=== PATIENT | male | born 1955 | race Caucasian/White ===

== ENCOUNTER 2021-06-29 17:17 | Emergency (ER) | payer MEDICARE, OTHER ==
[~2021-06-29] VITALS: Ht 177.8 cm; Wt 113.6 kg
[2021-06-29] MEDS ORDERED: LORazepam 2 MG/ML VIAL IVP ONE (18:00)
[2021-06-29 18:04] LABS: BASOPHILS % (AUTO) 0.7 % (0.0-2.0); EOSINOPHILS % (AUTO) 1.4 % (1.0-6.0); HEMATOCRIT 42.7 % (41-53); HEMOGLOBIN 14.1 g/dL (13.5-17.5); LYMPHOCYTES # (AUTO) 1.5 K/uL (1.0-4.8); LYMPHOCYTES % (AUTO) 21.5 % (22.0-44.0); MEAN CORPUSCULAR HEMOGLOBIN 28.9 pg (26.0-34.0); MEAN CORPUSCULAR HGB CONC 33.2 G/dL (31.0-37.0); MEAN CORPUSCULAR VOLUME 87 fL (80-100); MONOCYTES # (AUTO) 0.6 K/uL (0.1-1.0); MONOCYTES % (AUTO) 8.6 % (2.0-9.0); NEUTROPHILS # (AUTO) 4.8 K/uL (1.8-7.7); NEUTROPHILS % (AUTO) 67.8 % (40.0-70.0); PLATELET COUNT (AUTO) 116 K/uL (150-450); RED CELL DISTRIBUTION WIDTH 15.4 % (11.5-14.5)
[2021-06-29 18:15] LABS: CALCIUM, TOTAL 8.7 mg/dL (8.8-10.5); CREATININE 1.4 mg/dL (0.60-1.30); POTASSIUM 3.7 mmol/L (3.5-5.1)
[2021-06-29 18:21] LABS: ALBUMIN 3.3 g/dL (3.4-5.0); BILIRUBIN,TOTAL 0.8 mg/dL (0.1-1.0); TOTAL PROTEIN, SERUM 7.3 g/dL (6.4-8.2)
[2021-06-29 18:27] LABS: D-DIMER 0.27 mg/L FEU (0.00-0.50); PROTHROMBIN TIME 10.2 SEC (9.4-11.6)
[2021-06-29 18:37] LABS: COVID AG,FIA SOURCE NASAL SWAB
[2021-06-29 19:56] VITALS: BP 160/106
== END 2021-06-29 22:54 | disposition home or self-care (01) ==
LOC: EMS 17:26
DX: F10.239 Alcohol dependence with withdrawal, unspecified (principal); R06.02 Shortness of breath; I10 Essential (primary) hypertension; Z20.822 Contact with and (suspected) exposure to COVID-19; Y90.0 Blood alcohol level of less than 20 mg/100 ml
CPT/HCPCS: 36415; 71045; 80053; 83880; 84484; 85025; 85379; 85610; 85730; 87426; 93005; 96374; 99285; G0480; J2060

== ENCOUNTER 2023-05-18 06:57 | Emergency (ER) | payer MEDICARE, OTHER ==
[~2023-05-18] VITALS: Ht 177.8 cm; Wt 100.0 kg
[~2023-05-18 06:57] MED LIST: CLOT15CR29 TP
[2023-05-18 07:02] VITALS: TEMP 98.6
[2023-05-18] MEDS ORDERED: TRAZ-257 PO (07:02)
[2023-05-18] MEDS ORDERED: ATOR20TA65 PO (07:02)
[2023-05-18] MEDS ORDERED: AMLO-430 PO (07:02)
[2023-05-18 07:20] VITALS: BP 119/62; PULSE 90; RESP 16
[2023-05-18] MEDS ORDERED: DOXY-354 PO (07:38)
== END 2023-05-18 07:47 | disposition home or self-care (01) ==
LOC: EMS 06:57
DX: H66.93 Otitis media, unspecified, bilateral (principal); I10 Essential (primary) hypertension; F12.90 Cannabis use, unspecified, uncomplicated; Z88.0 Allergy status to penicillin; Z91.030 Bee allergy status
CPT/HCPCS: 99283

== ENCOUNTER 2024-01-13 11:01 | Emergency (ER) | payer MEDICARE, OTHER ==
[~2024-01-13] VITALS: Ht 175.3 cm; Wt 101.0 kg
[~2024-01-13 11:01] MED LIST changes: +AMLO-430 PO; +ATOR20TA65 PO; +DOXY-354 PO; +TRAZ-257 PO
[2024-01-13 11:09] VITALS: TEMP 98.3
[2024-01-13] MEDS: AZITHROMYCIN 500 MG TABLET PO ONE (14:27)
[2024-01-13] MEDS: OxyCODONE HCL/ACETAMINOPHEN 5-325 MG TABLET PO ONE (14:27)
[2024-01-13 15:12] VITALS: BP 135/80; PULSE 90; RESP 16
== END 2024-01-13 13:15 | disposition home or self-care (01) ==
LOC: EMS 11:01
DX: S92.401A Displaced unspecified fracture of right great toe, initial encounter for closed fracture (principal); H66.93 Otitis media, unspecified, bilateral; I10 Essential (primary) hypertension; F12.90 Cannabis use, unspecified, uncomplicated; Z98.890 Other specified postprocedural states; Z88.0 Allergy status to penicillin; Z91.040 Latex allergy status; Z88.8 Allergy status to other drugs, medicaments and biological substances; X58.XXXA Exposure to other specified factors, initial encounter; Y93.89 Activity, other specified; Y92.89 Other specified places as the place of occurrence of the external cause; Y99.8 Other external cause status
CPT/HCPCS: 99283; 73630; Q9967

== ENCOUNTER 2024-09-06 08:09 | Emergency (ER) | payer MEDICARE, OTHER ==
[~2024-09-06] VITALS: Ht 177.8 cm; Wt 97.0 kg
[2024-09-06 08:14] VITALS: TEMP 98.3
[2024-09-06] MEDS ORDERED: CLIN-26 PO (08:33)
[2024-09-06] MEDS ORDERED: SULF-261 PO (08:33)
[2024-09-06] MEDS: SULFAMETHOX/TRIMETH DS 800-160 MG/TABLET PO ONE (08:35)
[2024-09-06] MEDS: CLINDAMYCIN HCL 150 MG CAPSULE PO ONE (08:35)
[2024-09-06 08:50] VITALS: BP 145/65; PULSE 81; RESP 16; O2SAT 98
== END 2024-09-06 08:51 | disposition home or self-care (01) ==
LOC: EMS 08:12
DX: L03.113 Cellulitis of right upper limb (principal); E78.00 Pure hypercholesterolemia, unspecified; I10 Essential (primary) hypertension; F12.90 Cannabis use, unspecified, uncomplicated; Z98.890 Other specified postprocedural states; Z91.030 Bee allergy status; Z88.8 Allergy status to other drugs, medicaments and biological substances; Z88.0 Allergy status to penicillin; Z79.899 Other long term (current) drug therapy
CPT/HCPCS: 99283